=== PATIENT | male | born 1975 | race Caucasian/White ===

== ENCOUNTER 2025-03-15 00:25 | Inpatient (IN) | payer OTHER, MEDICAID ==
[~2025-03-15] VITALS: Ht 152.4 cm; Wt 41.6 kg
[2025-03-15] VITALS (25 sets, daily range): BP systolic 96–145; BP diastolic 57–74; TEMP 97.9–98.9; O2SAT 88–99
[2025-03-15] MEDS: MIDAZOLAM 100MG/100ML-0.9%NACL 100 MG in IV 1 EA IV SCH (03:18)
[2025-03-15] MEDS ORDERED: ACETAMINOPHEN *IV* 500 MG in IV 1 EA IV PRN (03:25)
[2025-03-15 03:32] LABS: ABG BASE EXCESS 19.7 (-2.0-2.0); ABG HCO3 47.2 MMOL/L (22.0-26.0); ABG O2 SATURATION 94.5 % (95.0-99.0); ABG PARTIAL PRESSURE O2 68.5 mmHg (75.0-100.0); ABG STANDARD HCO3 43.8 MMOL/L. (22.0-26.0); ABG TOTAL CO2 49.3 MMOL/L (22.0-29.0); ABG pH (ARTERIAL) 7.442 UNITS (7.350-7.450)
[2025-03-15 03:35] LABS: ABG PARTIAL PRESSURE CO2 70.7 mmHg (35.0-45.0)
[2025-03-15 04:16] LABS: BASO # 0.0 10^3/uL (0.0-0.2); BASO % 0.2 % (0.0-1.0); EOS # 0.0 10^3/uL (0.0-0.5); EOS % 0.0 % (0.0-3.0); LYMPH # 0.4 10^3/uL (1.5-5.0); LYMPH % 2.7 % (24.0-44.0); MONO # 0.4 10^3/uL (0.0-0.8); MONO % 3.0 % (2.0-8.0); NEUTROPHILS # 12.1 10^3/uL (1.5-8.5); NEUTROPHILS % 92.8 % (36.0-66.0); PLATELET COUNT, AUTOMATED 203 10^3/uL (150-450)
[2025-03-15 04:31] LABS: ALT/SGPT 26 U/L (7.0-40); AST/SGOT 15 U/L (<34); CALCIUM LEVEL 9.4 MG/DL (8.5-10.1); CARBON DIOXIDE LEVEL > 40.0 MMOL/L (20-31); CHLORIDE LEVEL 87 MMOL/L (98-107); CREATININE FOR GFR 0.42 MG/DL (0.70-1.30); GLOMERULAR FILTRATION RATE > 90.0 (>60); PHOSPHORUS LEVEL 3.1 MG/DL (2.5-4.9); POTASSIUM SERUM 4.4 MMOL/L (3.5-5.1); SODIUM LEVEL 138 MMOL/L (136-145)
[2025-03-15 04:49] LABS: MAGNESIUM LEVEL 2.5 MG/DL (1.8-2.4)
[2025-03-15] MEDS: cefTRIAXone SOD 1 GM in DEXTROSE 5% (D5W) ADV/MINI-BAG 50 ML IV SCH (05:28)
[2025-03-15] MEDS: DOXYCYCLINE HYCLATE 100 MG in DEXTROSE 5% (D5W) MINI-BAG PLU 100 ML IV SCH (06:29)
[2025-03-15] MEDS: IPRATROPIUM 0.5 MG/ALBUTEROL 2.5 MG INH SOL UD 3 ML NEB SCH (07:32)
[2025-03-15] MEDS ORDERED: VENTAER INH (08:19)
[2025-03-15] MEDS ORDERED: SENN-23 PO (08:19)
[2025-03-15] MEDS ORDERED: FLUT1BLS8 INH (08:19)
[2025-03-15] MEDS ORDERED: ENSI3AMP INH (08:19)
[2025-03-15] MEDS ORDERED: IPRA0.00 INH (08:19)
[2025-03-15] MEDS ORDERED: AMLO1TAB24 PO (08:19)
[2025-03-15] MEDS ORDERED: HOME MED LIST COMPLETE! XX SCH (08:20)
[2025-03-15] MEDS: PANTOPRAZOLE 40MG VIAL IV SCH (08:31)
[2025-03-15] MEDS: GLYCOPYRROLATE INJ 0.2 MG/ML 2 ML VIAL NEB SCH (10:01)
[2025-03-15] MEDS: ENOXAPARIN 30 MG/0.3 ML SYRINGE (J1650 PER 10MG) SC SCH (10:41)
[2025-03-15] MEDS: ENOXAPARIN 30 MG/0.3 ML SYRINGE (J1650 PER 10MG) SC ONE (13:42)
[2025-03-15] MEDS ORDERED: ISOVUE-370 76% 100 ML VIAL As Ordered ONE (13:58)
[2025-03-15 15:56] LABS: VENOUS BASE EXCESS 13.1 (-2.0-2.0); VENOUS HCO3 38.2 MMOL/L (23.0-27.0); VENOUS O2 SATURATION 99.1 % (60.0-80.0); VENOUS PARTIAL PRESSURE CO2 51.4 mmHg (38.0-50.0); VENOUS PARTIAL PRESSURE O2 263.5 mmHg (30.0-50.0); VENOUS PH 7.489 UNITS (7.330-7.430); VENOUS STANDARD HCO3 36.9 MMOL/L; VENOUS TOTAL CO2 39.8 MMOL/L (24.0-28.0)
[2025-03-15 18:09] LABS: VENOUS BASE EXCESS 11.0 (-2.0-2.0); VENOUS HCO3 37.6 MMOL/L (23.0-27.0); VENOUS O2 SATURATION 95.1 % (60.0-80.0); VENOUS PARTIAL PRESSURE CO2 60.9 mmHg (38.0-50.0); VENOUS PARTIAL PRESSURE O2 76.6 mmHg (30.0-50.0); VENOUS PH 7.409 UNITS (7.330-7.430); VENOUS STANDARD HCO3 34.7 MMOL/L; VENOUS TOTAL CO2 39.5 MMOL/L (24.0-28.0)
[2025-03-15] MEDS: AZITHROMYCIN INJ 500 MG, VIAL MATE ADAPTER 1 EACH in NS 250 ML IV SCH (20:09)
[2025-03-16] VITALS (14 sets, daily range): BP systolic 123–166; BP diastolic 63–93; TEMP 96.9–98.9; O2SAT 91–98
[2025-03-16 04:38] LABS: VENOUS BASE EXCESS 15.5 (-2.0-2.0); VENOUS HCO3 43.3 MMOL/L (23.0-27.0); VENOUS O2 SATURATION 99.4 % (60.0-80.0); VENOUS PARTIAL PRESSURE CO2 74.1 mmHg (38.0-50.0); VENOUS PARTIAL PRESSURE O2 169.5 mmHg (30.0-50.0); VENOUS PH 7.385 UNITS (7.330-7.430); VENOUS STANDARD HCO3 39.4 MMOL/L; VENOUS TOTAL CO2 45.6 MMOL/L (24.0-28.0)
[2025-03-16 04:44] LABS: BASO # 0.0 10^3/uL (0.0-0.2); BASO % 0.1 % (0.0-1.0); EOS # 0.0 10^3/uL (0.0-0.5); EOS % 0.0 % (0.0-3.0); LYMPH # 0.4 10^3/uL (1.5-5.0); LYMPH % 2.6 % (24.0-44.0); MONO # 1.1 10^3/uL (0.0-0.8); MONO % 6.8 % (2.0-8.0); NEUTROPHILS # 14.5 10^3/uL (1.5-8.5); NEUTROPHILS % 89.5 % (36.0-66.0); PLATELET COUNT, AUTOMATED 179 10^3/uL (150-450)
[2025-03-16 05:12] LABS: FREE T4 1.20 NG/DL (0.89-1.76)
[2025-03-16 05:15] LABS: ALT/SGPT 22 U/L (7.0-40); AST/SGOT 9 U/L (<34); CALCIUM LEVEL 8.6 MG/DL (8.5-10.1); CARBON DIOXIDE LEVEL > 40.0 MMOL/L (20-31); CHLORIDE LEVEL 94 MMOL/L (98-107); CREATININE FOR GFR 0.36 MG/DL (0.70-1.30); GLOMERULAR FILTRATION RATE > 90.0 (>60); MAGNESIUM LEVEL 2.0 MG/DL (1.8-2.4); PHOSPHORUS LEVEL 3.4 MG/DL (2.5-4.9); POTASSIUM SERUM 4.1 MMOL/L (3.5-5.1); SODIUM LEVEL 141 MMOL/L (136-145)
[2025-03-16] MEDS: FUROSEMIDE 20 MG/2 ML VIAL IV ONE (10:09)
[2025-03-16] MEDS ORDERED: ACETAMINOPHEN 325 MG TAB PO PRN (11:00)
[2025-03-16] MEDS: BUDESONIDE 0.5 MG/2 ML INHALATION SUSPENSION NEB SCH (11:29)
[2025-03-16] MEDS: SENNOSIDES/DOCUSATE SODIUM 8.6 MG/50MG TAB PO SCH (12:12)
[2025-03-16] MEDS: predniSONE 20 MG TAB PO SCH (12:13)
[2025-03-16] MEDS: AZITHROMYCIN 250 MG TABLET PO SCH (20:08)
[2025-03-17] VITALS (26 sets, daily range): BP systolic 108–146; BP diastolic 66–86; TEMP 97.4–97.9; O2SAT 85–97
[2025-03-17 05:31] LABS: VENOUS BASE EXCESS 15.3 (-2.0-2.0); VENOUS HCO3 42.9 MMOL/L (23.0-27.0); VENOUS O2 SATURATION 98.5 % (60.0-80.0); VENOUS PARTIAL PRESSURE CO2 70.4 mmHg (38.0-50.0); VENOUS PARTIAL PRESSURE O2 114.0 mmHg (30.0-50.0); VENOUS PH 7.403 UNITS (7.330-7.430); VENOUS STANDARD HCO3 39.2 MMOL/L; VENOUS TOTAL CO2 45.1 MMOL/L (24.0-28.0)
[2025-03-17 05:36] LABS: BASO # 0.0 10^3/uL (0.0-0.2); BASO % 0.1 % (0.0-1.0); EOS # 0.0 10^3/uL (0.0-0.5); EOS % 0.0 % (0.0-3.0); LYMPH # 1.0 10^3/uL (1.5-5.0); LYMPH % 7.0 % (24.0-44.0); MONO # 1.8 10^3/uL (0.0-0.8); MONO % 12.8 % (2.0-8.0); NEUTROPHILS # 11.4 10^3/uL (1.5-8.5); NEUTROPHILS % 79.5 % (36.0-66.0); PLATELET COUNT, AUTOMATED 177 10^3/uL (150-450)
[2025-03-17 06:07] LABS: CALCIUM LEVEL 8.9 MG/DL (8.5-10.1); CARBON DIOXIDE LEVEL > 40.0 MMOL/L (20-31); CHLORIDE LEVEL 94 MMOL/L (98-107); CREATININE FOR GFR 0.39 MG/DL (0.70-1.30); GLOMERULAR FILTRATION RATE > 90.0 (>60); POTASSIUM SERUM 4.4 MMOL/L (3.5-5.1); SODIUM LEVEL 139 MMOL/L (136-145)
[2025-03-17] MEDS: acetaZOLAMIDE 500 MG INJECTION IV STA (16:05)
[2025-03-18] VITALS (14 sets, daily range): BP systolic 111–144; BP diastolic 67–93; TEMP 97.3–98.6; O2SAT 80–98
[2025-03-18 05:36] LABS: ABG BASE EXCESS 2.6 (-2.0-2.0); ABG HCO3 30.4 MMOL/L (22.0-26.0); ABG O2 SATURATION 94.6 % (95.0-99.0); ABG PARTIAL PRESSURE O2 75.7 mmHg (75.0-100.0); ABG STANDARD HCO3 26.8 MMOL/L. (22.0-26.0); ABG TOTAL CO2 32.3 MMOL/L (22.0-29.0); ABG pH (ARTERIAL) 7.295 UNITS (7.350-7.450)
[2025-03-18 05:37] LABS: ABG PARTIAL PRESSURE CO2 63.9 mmHg (35.0-45.0)
[2025-03-18 05:56] LABS: BASO # 0.0 10^3/uL (0.0-0.2); BASO % 0.3 % (0.0-1.0); EOS # 0.1 10^3/uL (0.0-0.5); EOS % 0.9 % (0.0-3.0); LYMPH # 1.3 10^3/uL (1.5-5.0); LYMPH % 13.7 % (24.0-44.0); MONO # 1.2 10^3/uL (0.0-0.8); MONO % 12.9 % (2.0-8.0); NEUTROPHILS # 6.5 10^3/uL (1.5-8.5); NEUTROPHILS % 70.6 % (36.0-66.0); PLATELET COUNT, AUTOMATED 195 10^3/uL (150-450)
[2025-03-18 06:30] LABS: CALCIUM LEVEL 9.3 MG/DL (8.5-10.1); CARBON DIOXIDE LEVEL 32 MMOL/L (20-31); CHLORIDE LEVEL 100 MMOL/L (98-107); CREATININE FOR GFR 0.46 MG/DL (0.70-1.30); GLOMERULAR FILTRATION RATE > 90.0 (>60); POTASSIUM SERUM 4.3 MMOL/L (3.5-5.1); SODIUM LEVEL 139 MMOL/L (136-145)
[2025-03-19 03:42] VITALS: BP 122/69; TEMP 97.5; O2SAT 97
[2025-03-19 05:48] LABS: BASO # 0.0 10^3/uL (0.0-0.2); BASO % 0.4 % (0.0-1.0); EOS # 0.1 10^3/uL (0.0-0.5); EOS % 1.4 % (0.0-3.0); LYMPH # 1.2 10^3/uL (1.5-5.0); LYMPH % 15.5 % (24.0-44.0); MONO # 0.8 10^3/uL (0.0-0.8); MONO % 10.5 % (2.0-8.0); NEUTROPHILS # 5.3 10^3/uL (1.5-8.5); NEUTROPHILS % 69.0 % (36.0-66.0); PLATELET COUNT, AUTOMATED 179 10^3/uL (150-450)
[2025-03-19 06:18] LABS: CALCIUM LEVEL 8.9 MG/DL (8.5-10.1); CARBON DIOXIDE LEVEL 38 MMOL/L (20-31); CHLORIDE LEVEL 96 MMOL/L (98-107); CREATININE FOR GFR 0.41 MG/DL (0.70-1.30); GLOMERULAR FILTRATION RATE > 90.0 (>60); POTASSIUM SERUM 4.3 MMOL/L (3.5-5.1); SODIUM LEVEL 140 MMOL/L (136-145)
[2025-03-19 07:54] VITALS: BP 126/60; TEMP 98.2; O2SAT 92
[2025-03-19] MEDS ORDERED: PRED10TA2 PO (11:52)
[2025-03-19 12:00] VITALS: BP 125/65; TEMP 97.9; O2SAT 94
[2025-03-19 16:00] VITALS: BP 134/73; TEMP 97.8; O2SAT 93
[2025-03-19 20:06] VITALS: BP 123/67; TEMP 98.1; O2SAT 100
[2025-03-20 04:20] VITALS: BP 119/73; TEMP 97.8; O2SAT 98
[2025-03-20 06:07] LABS: BASO # 0.0 10^3/uL (0.0-0.2); BASO % 0.4 % (0.0-1.0); EOS # 0.1 10^3/uL (0.0-0.5); EOS % 1.2 % (0.0-3.0); LYMPH # 1.4 10^3/uL (1.5-5.0); LYMPH % 18.1 % (24.0-44.0); MONO # 0.7 10^3/uL (0.0-0.8); MONO % 9.2 % (2.0-8.0); NEUTROPHILS # 5.2 10^3/uL (1.5-8.5); NEUTROPHILS % 66.9 % (36.0-66.0); PLATELET COUNT, AUTOMATED 168 10^3/uL (150-450)
[2025-03-20 06:37] LABS: CALCIUM LEVEL 8.8 MG/DL (8.5-10.1); CARBON DIOXIDE LEVEL > 40.0 MMOL/L (20-31); CHLORIDE LEVEL 96 MMOL/L (98-107); CREATININE FOR GFR 0.42 MG/DL (0.70-1.30); GLOMERULAR FILTRATION RATE > 90.0 (>60); POTASSIUM SERUM 4.3 MMOL/L (3.5-5.1); SODIUM LEVEL 141 MMOL/L (136-145)
[2025-03-20 08:16] VITALS: BP 144/68; TEMP 97.8; O2SAT 99
[2025-03-20] MEDS: predniSONE 10 MG TAB PO SCH (08:57)
[2025-03-20] MEDS: PANTOPRAZOLE 40MG TAB PO SCH (08:58)
== END 2025-03-20 12:55 | disposition home health service (06) | DRG 133 ==
LOC: UNDOADMIN 00:27 → M ICU 00:27 → M PCU 03-16 22:50
PROVIDERS: ADMIT Student in an Organized Health Care Education/Training Program; ATTEND Student in an Organized Health Care Education/Training Program
PROC: B246ZZZ Ultrasonography of Right and Left Heart (ICD-10-PCS; principal; 2025-03-15)
PROC: 5A1945Z Respiratory Ventilation, 24-96 Consecutive Hours (ICD-10-PCS; 2025-03-15)
DX: J96.22 Acute and chronic respiratory failure with hypercapnia (principal); G93.41 Metabolic encephalopathy; R64 Cachexia; I27.20 Pulmonary hypertension, unspecified; E43 Unspecified severe protein-calorie malnutrition; J44.1 Chronic obstructive pulmonary disease with (acute) exacerbation; I11.0 Hypertensive heart disease with heart failure; I27.81 Cor pulmonale (chronic); I50.811 Acute right heart failure; Z99.81 Dependence on supplemental oxygen; F17.200 Nicotine dependence, unspecified, uncomplicated; D64.9 Anemia, unspecified; F79 Unspecified intellectual disabilities; Z68.1 Body mass index [BMI] 19.9 or less, adult; Z79.52 Long term (current) use of systemic steroids; Z79.899 Other long term (current) drug therapy; J96.21 Acute and chronic respiratory failure with hypoxia